=== PATIENT | female | born 1995 | race Caucasian/White ===

== ENCOUNTER 2017-03-11 11:26 | Emergency (ER) | payer MEDICAID ==
[~2017-03-11] VITALS: Ht 165.1 cm; Wt 58.0 kg
[2017-03-11 14:45] VITALS: BP 117/72
== END 2017-03-11 15:51 | disposition home or self-care (01) ==
LOC: ER 11:36
DX: O20.0 Threatened abortion (principal); Z3A.00 Weeks of gestation of pregnancy not specified
CPT/HCPCS: 36415; 76801; 81025; 84702; 99285